=== PATIENT | female | born 1985 | race Caucasian/White ===

== ENCOUNTER 2022-06-27 11:32 | Emergency (ER) | payer BC, SELFPAY ==
[2022-06-27] VITALS (8 sets, daily range): BP systolic 144–187; BP diastolic 98–134; PULSE 62–77; RESP 18; TEMP 36.3; O2SAT 97–100; BMI 32.8
--- NOTE | 2022-06-27 11:51 | CRLHL7_ITS ---
For Patients: As a result of the Century Cures Act, medical imaging exams and procedure reports are released immediately into your electronic medical record. You may view this report before your referring provider. If you have questions, please contact your health care provider. INDICATION : Left-sided pain. History of urolithiasis. COMPARISON : None. TECHNIQUE : Noncontrast CT scan of the abdomen and pelvis was performed. FINDINGS: Lower chest: There are pleural-based nodules measuring 3.5 millimeters and 4.5 millimeters within the anterior right middle lobe (images 2 and 7, series 2). The lung bases are otherwise clear. Liver: Diffuse hepatic steatosis. No hepatic mass or ductal dilatation. Gallbladder and bile ducts: No stones or inflammation. No biliary dilatation. Pancreas: Unremarkable. No mass or inflammation. Spleen: Normal in size. No masses. Adrenal glands: Mild thickening of the left adrenal gland consistent with hyperplasia. Normal right adrenal gland. Kidneys: Nonobstructing stones measuring 2 millimeters and 3 millimeters within the right kidney upper pole. No focal right renal lesion. No right ureteral stone or hydronephrosis. There are 4 stones measuring between 2 and 4 millimeters within the left kidney lower pole. No focal left renal lesion is identified. There is an 8 millimeter stone within the left distal ureter resulting in moderate left hydroureteronephrosis (axial image 108, sagittal image 61 and coronal image 76). GI tract: The stomach and small bowel are unremarkable. There are numerous diverticuli within the descending and sigmoid colon. No diverticulitis. Normal appendix. Vasculature: Abdominal aorta is normal in caliber. Lymph nodes: No lymphadenopathy. Peritoneum/Abdominal Wall: Unremarkable. No sign of mass or infiltration. No free air or significant free fluid. Pelvis: Unremarkable. No pelvic masses. Normal urinary bladder. Bones: A densely sclerotic lesion within the left iliac crest (image 90, series 2) is consistent with a benign all there are mild degenerative changes within the right sacroiliac joint. Bone island. IMPRESSION: 1. Right middle lobe pulmonary nodules measuring 3.5 millimeters and 4.5 millimeters. If the patient is at low risk for pulmonary malignancy then no routine imaging follow-up is needed. If the patient is at increased risk for pulmonary malignancy then a follow-up CT scan could be performed in 1 year as per Fleischner criteria guidelines. 2. Bilateral nephrolithiasis. 3. 8 millimeter stone within the left distal ureter resulting in moderate left hydroureteronephrosis. 4. Diffuse hepatic steatosis. 5. Left adrenal gland hyperplasia. 6. Colonic diverticulosis. Please note that all CT scans at this facility use dose modulation, iterative reconstruction, and/or weight-based dosing when appropriate to reduce radiation dose to as low as reasonably achievable. Dictated by Renzo Nam MD @ 06/27/2022 12:40:33 PM (Electronically Signed)
[2022-06-27 12:03] LABS: Basophils Absolute Auto 0.05 K/uL (0.00-0.30); Basophils Percent Auto 0.7 % (0.0-3.0); Carbon Dioxide* 19 mmol/L (20-32); Chloride* 108 mmol/L (96-114); Eosinophils Absolute Auto 0.12 K/uL (0.00-0.50); Eosinophils Percent Auto 1.6 % (0.0-7.0); Glucose* 101 mg/dL (60-115); Hematocrit 39.9 % (33.0-51.0); Hemoglobin* 13.3 gm/dL (12.0-16.0); Immature Granulocytes Abs Auto 0.01 K/uL (0.00-0.30); Immature Granulocytes Pct Auto 0.1 %; Lymphocytes Absolute Auto 2.08 K/uL (0.90-2.90); Lymphocytes Percent Auto 28.4 % (20-44); Mean Corpuscular HGB Conc 33 gm/dL (32-36); Mean Corpuscular Hemoglobin 29 pg (26-34); Mean Corpuscular Volume 87 fL (80-100); Monocytes Percent Auto 7.4 % (0.0-11.0); Neutrophils Absolute Auto 4.52 K/uL (1.7-7.0); Neutrophils Percent Auto 61.8 % (42.0-72.0); Platelet Count* 333 K/uL (140-440); RDW Coefficient of Variation % 12.8 % (11.5-15.5); Sodium* 142 mmol/L (135-149); White Blood Count* 7.32 K/uL (4.50-11.00)
[2022-06-27 12:07] LABS: Slide Review Reflex No
[2022-06-27 12:17] LABS: Creatinine* 0.9 mg/dL (0.5-1.5); Est. Creatinine Clearance* 69.42; Estimated Glomerular Filt Rate 83 ml/min
[2022-06-27 12:18] LABS: Blood Urea Nitrogen* 11 mg/dL (5-24)
[2022-06-27] MEDS: ONDANSETRON 2 MG/ML inj 4 MG IVP (12:22)
[2022-06-27] MEDS: KETOROLAC 30 MG/ML inj IVP (12:23)
[2022-06-27] MEDS: 0.9 % SODIUM CHLORIDE 1000 ml 1,000 ML IV (12:24)
--- NOTE | 2022-06-27 12:35 | ED.ABDPAIN ---
HPI - Abdominal Pain General Date Seen: 06/27/22 Chief Complaint: Flank Pain Stated Complaint: Kidney stone Time Seen by Provider: 06/27/22 11:37 Source: patient Mode of arrival: ambulatory Limitations: no limitations History of Present Illness HPI narrative: Patient is a 37-year-old female presents here with left flank discomfort there radiates around to her left groin, this is characteristic of previous kidney stones that she has had, she has a known former of kidney stones. It has been for the last 2 years that she has not passed any stones but this feels like his she took ibuprofen this morning that helped. She feels slightly nauseous, but has had no vomiting. She denies any fevers chills, there is no dysuria frequency, she her has been able to passed stones up to 7 mm, but has required lithotripsy and stenting in the past. All over treatments for down in [facility], she has recently moved up to the area in the last year and a half and has no urologist locally. Tells me that she is not as her had a vasectomy. No chronic medications, no known allergies. Denies significant fevers chills or sweats diarrhea dysuria frequency of urination sore throat chest pain or other symptoms. Treatments prior to arrival: NSAIDs Related Data Patient : No Home Medications Medication Instructions Recorded Confirmed No Known Home Medications 06/27/22 06/27/22 Allergies Allergy/AdvReac Type Severity Reaction Status Date / Time No Known Drug Allergies Allergy Verified 06/27/22 11:45 Review of Systems Status of ROS Reports: 10 or more systems reviewed and unremarkable except as noted in History and below PFSH PFSH Social History Smoking Status: Former smoker Do you use any of these nicotine containing products: Vaping Products Second hand tobacco smoke exposure: No How often do you have a drink containing alcohol: never How often do you have six or more drinks on one occasion: Never AUDIT-C Alcohol total score: 0 Non-prescribed substance use: denies use Exam Narrative: Exam Narrative: Patient is the no apparent distress sitting in room 3, she is alert oriented, nontoxic. Pupils equal round reactive to light neck is supple oropharynx normal, good hydration status, chest is clear bilaterally no wheezing crackles noted, heart sounds are normal, abdomen is soft, some mild tenderness is noted the left lower quadrant on deep palpation, no positive CVA tenderness is noted, she moves all extremities independently well with negative SLR is bilaterally. Skin reveals no petechiae rashes Const: Vital Signs, click to edit/add: Vital Signs - 24 hr 06/27/22 11:40 06/27/22 12:27 06/27/22 12:30 Temperature 97.4 F L Pulse Rate 67 65 Pulse Rate [Right Pulse Oximeter] 77 Respiratory Rate 18 Blood Pressure Blood Pressure [Ri ght Upper Arm] 187/134 H Pulse Oximetry 99 99 97 Oxygen Delivery Me thod Room Air 06/27/22 12:33 06/27/22 13:00 06/27/22 13:02 Temperature Pulse Rate 62 65 65 Pulse Rate [Right Pulse Oximeter] Respiratory Rate Blood Pressure 148/100 H 145/98 H Blood Pressure [Ri ght Upper Arm] Pulse Oximetry 97 98 100 Oxygen Delivery Me thod 06/27/22 13:30 06/27/22 13:32 Temperature Pulse Rate 76 Pulse Rate [Right Pulse Oximeter] Respiratory Rate Blood Pressure 144/117 H Blood Pressure [Ri ght Upper Arm] Pulse Oximetry 98 Oxygen Delivery Me thod Documenting provider has reviewed patient's vital signs: yes Course Course Hospital Course: Patient has done well here, she has no complaints, the Toradol and Zofran of really worked well for her. She has a rather large stone but has had a history of passing large stones. I think it would be reasonable to try this outpatient, she is advocating for this. We will allow her to use the Zofran ibuprofen and some hydrocodone for breakthrough pain I went over signs and symptoms of worsening condition, and she was very comfortable with going home. We also did briefly touch on the fact that she has pulmonary nodules, she will need to follow-up within primary care for recheck, and likely re imaging for this. Review of the [employer] did not show any prescriptions for narcotics. Vital Signs Vital signs: Initial Vital Signs Temperature 97.4 F L 06/27/22 11:40 Temperature Source Temporal Artery Scan 06/27/22 11:40 Pulse Rate 77 06/27/22 11:40 Respiratory Rate 18 06/27/22 11:40 Blood Pressure 187/134 H 06/27/22 11:40 Blood Pressure Mean 151 H 06/27/22 11:40 Blood Pressure Position Sitting 06/27/22 11:40 Pulse Oximetry 99 06/27/22 11:40 Oxygen Delivery Method Room Air 06/27/22 11:40 Vital Signs Temperature 97.4 F L 06/27/22 11:40 Pulse Rate 77 06/27/22 11:40 Respiratory Rate 18 06/27/22 11:40 Blood Pressure 187/134 H 06/27/22 11:40 Pulse Oximetry 99 06/27/22 11:40 Oxygen Delivery Method Room Air 06/27/22 11:40 Temperature 97.4 F L 06/27/22 11:40 Pulse Rate 76 06/27/22 13:30 Respiratory Rate 18 06/27/22 11:40 Blood Pressure 144/117 H 06/27/22 13:32 Pulse Oximetry 98 06/27/22 13:30 Oxygen Delivery Method Room Air 06/27/22 11:40 MDM - Abdominal Pain MDM Narrative Medical decision making narrative: During the evaluation of this patient I considered multiple differential diagnosis including life-threatening differentials which are appendicitis, aortic aneurysm, mesenteric ischemia, bowel perforation, ectopic , volvulus and bowel obstruction, other differential diagnosis include but are not limited to inflammatory bowel disease, cholecystitis, pancreatitis, hepatitis, gastritis, GERD, diverticulitis, peptic ulcer disease, pyelonephritis/UTI, renal colic/stone, pelvic inflammatory disease, cervicitis, endometritis, intrauterine , dysfunctional uterine bleeding, ovarian cyst/torsion, spontaneous as well as other etiologies Medical Records Attestation: I reviewed the patient's medical records. Lab Data Attestation: I reviewed the patient's lab results. Labs: Lab Results 06/27/22 06/27/22 Range/Units 11:40 13:10 WBC 7.32 (4.50-11.00) K/uL RBC 4.60 (4.00-5.20) m/uL Hgb 13.3 (12.0-16.0) gm/dL Hct 39.9 (33.0-51.0) % MCV 87 (80-100) fL MCH 29 (26-34) pg MCHC 33 (32-36) gm/dL RDW Coeff of Isauro 12.8 (11.5-15.5) % Plt Count 333 (140-440) K/uL Neut % (Auto) 61.8 (42.0-72.0) % Lymph % (Auto) 28.4 (20-44) % [place] % (Auto) 7.4 (0.0-11.0) % Eos % (Auto) 1.6 (0.0-7.0) % Baso % (Auto) 0.7 (0.0-3.0) % Neut # (Auto) 4.52 (1.7-7.0) K/uL Lymph # (Auto) 2.08 (0.90-2.90) K/uL [place] # (Auto) 0.50 (0.00-0.90) K/UL Eos # (Auto) 0.12 (0.00-0.50) K/uL Baso # (Auto) 0.05 (0.00-0.30) K/uL Sodium 142 (135-149) mmol/L Potassium 4.0 (3.6-5.1) mmol/L Chloride 108 (96-114) mmol/L Carbon Dioxide 19 L (20-32) mmol/L BUN 11 (5-24) mg/dL Creatinine 0.9 (0.5-1.5) mg/dL Estimated Creat Clear 69.42 Estimated GFR 83 ml/min Glucose 101 (60-115) mg/dL Urine Color Dark yellow (Yellow) Urine Appearance Cloudy A (Clear) Urine pH 5.5 (5.0-8.5) Ur Specific [place] >= 1.030 (1.000-1.030) Urine Protein 2+ A (Negative) Urine Glucose (UA) Negative (Negative) Urine Ketones Trace A (Negative) Urine Blood 3+ A (Negative) Urine Nitrite Negative (Negative) Urine Bilirubin Negative (Negative) Urine Urobilinogen 0.2 (0.2-1.0) Ur Leukocyte Esterase Negative (Negative) Urine RBC >100 A (0-2) Urine WBC 2-5 (0-5) Ur Squamous Epith Cells Moderate A (None-Few) Urine Bacteria None (None) Imaging Data CT scan - abdomen: My impression: Urolithiasis with moderately severe hydronephrosis seen on the left side, stone measures 4-5 mm, distal ureter Radiologist's impression: Patient: NICOLA ISLAS Facility:[facility] Patient ID:?[id number] Site Patient ID:?[id number]. Site :?[id number] Study:?CT Abdomen/Pelvis W/O-06/27/2022 12:13:14 PM Ordering Physician:Elsy Mcqueen Final Report: INDICATION : Left-sided pain. History of urolithiasis. COMPARISON : None. TECHNIQUE : Noncontrast CT scan of the abdomen and pelvis was performed. FINDINGS: Lower chest: There are pleural-based nodules measuring 3.5 millimeters and 4.5 millimeters within the anterior right middle lobe (images 2 and 7, series 2). The lung bases are otherwise clear. Liver: Diffuse hepatic steatosis. No hepatic mass or ductal dilatation. Gallbladder and bile ducts: No stones or inflammation. No biliary dilatation. Pancreas: Unremarkable. No mass or inflammation. Spleen: Normal in size. No masses. Adrenal glands: Mild thickening of the left adrenal gland consistent with hyperplasia. Normal right adrenal gland. Kidneys: Nonobstructing stones measuring 2 millimeters and 3 millimeters within the right kidney upper pole. No focal right renal lesion. No right ureteral stone or hydronephrosis. There are 4 stones measuring between 2 and 4 millimeters within the left kidney lower pole. No focal left renal lesion is identified. There is an 8 millimeter stone within the left distal ureter resulting in moderate left hydroureteronephrosis (axial image 108, sagittal image 61 and coronal image 76). GI tract: The stomach and small bowel are unremarkable. There are numerous diverticuli within the descending and sigmoid colon. No diverticulitis. Normal appendix. Vasculature: Abdominal aorta is normal in caliber. Lymph nodes: No lymphadenopathy. Peritoneum/Abdominal Wall: Unremarkable. No sign of mass or infiltration. No free air or significant free fluid. Pelvis: Unremarkable. No pelvic masses. Normal urinary bladder. Bones: A densely sclerotic lesion within the left iliac crest (image 90, series 2) is consistent with a benign all there are mild degenerative changes within the right sacroiliac joint. Bone island. IMPRESSION: 1. Right middle lobe pulmonary nodules measuring 3.5 millimeters and 4.5 millimeters. If the patient is at low risk for pulmonary malignancy then no routine imaging follow-up is needed. If the patient is at increased risk for pulmonary malignancy then a follow-up CT scan could be performed in 1 year as per Fleischner criteria guidelines. 2. Bilateral nephrolithiasis. 3. 8 millimeter stone within the left distal ureter resulting in moderate left hydroureteronephrosis. 4. Diffuse hepatic steatosis. 5. Left adrenal gland hyperplasia. 6. Colonic diverticulosis. Please note that all CT scans at this facility use dose modulation, iterative reconstruction, and/or weight-based dosing when appropriate to reduce radiation dose to as low as reasonably achievable. Dictated by Renzo Nam MD @ 06/27/2022 12:40:33 PM (Electronic Signature) Discharge Plan Discharge Clinical Impression: Pulmonary nodule, Urolithiasis, Renal colic on left side Patient Disposition: Home w/ Parent or Adult Condition: Improved Instructions: Renal Colic (ED), Pulmonary Nodules (ED), Lithotripsy (DC) Additional Instructions: Home rest ibuprofen as needed, small supply of stronger medications given, narcotics, no use of alcohol with them, Zofran for nausea vomiting, this is a very large stone I initially measured to 5 mm but the radiologist saying it 7-8. You all have however passed it almost the entire way through your ureter, with a good chance that this will pass on its own. Increasing pain, nausea vomiting, fevers chills, or other issue she should come back and be seen, continue with fluids. I have given you the name of a urologist, that you can follow-up with in the [facility]. Some pulmonary nodules were also noted on your CT scan. Recommend following up with your primary doctor in the next month to discuss. Activity Level: No Restrictions Prescriptions: No Action No Known Home Medications Follow Up/Referrals: Luis Hyde MD [Staff Physician] - Provider,Not a Local [Primary Care Provider] - Stand Alone Forms: [employer] Info Instructions
[2022-06-27 13:19] LABS: Appearance Urine Cloudy (Clear); Bilirubin Urine Negative (Negative); Blood Urine 3+ (Negative); Color Urine Dark yellow (Yellow); Glucose Urine Negative (Negative); Ketones Urine Trace (Negative); Leukocyte Esterase Urine Negative (Negative); Nitrite Urine Negative (Negative); Protein Urine 2+ (Negative); Specific Gravity Urine >= 1.030 (1.000-1.030); Urobilinogen Urine 0.2 (0.2-1.0); pH Urine 5.5 (5.0-8.5)
[2022-06-27 13:35] LABS: RBC Urine >100 (0-2); Squamous Epithelial Cell Urine Moderate (None-Few)
== END 2022-06-27 13:52 | disposition home or self-care (01) ==
PROVIDERS: Emergency Provider Family Medicine
DX: R91.1 Solitary pulmonary nodule (principal); N20.9 Urinary calculus, unspecified; N23 Unspecified renal colic
CPT/HCPCS: 36415; 74176; 80048; 81001; 85025; 96374; 96375; 99284; J1885; J2405; J7030

== ENCOUNTER 2024-01-09 10:00 | Day surgery (SDC) | payer BC, SELFPAY ==
[2024-01-09] VITALS (11 sets, daily range): BP systolic 87–143; BP diastolic 49–94; PULSE 64–75; RESP 12–16; TEMP 36.7–37; O2SAT 96–100; BMI 33.5
[2024-01-09 10:55] LABS: Ur HCG Qualitative* Negative (Negative)
[2024-01-09] MEDS: SODIUM CHLORIDE 0.9 % (FLUSH) 10 ML SYRINGE IVF (11:00)
--- NOTE | 2024-01-09 11:09 | W.ANESCHARGE ---
Anesthesia Charges Start Date/Time Anesthesia Start Date: 01/09/24 Anesthesia Start Time: 12:12 Stop Date/Time Anesthesia Stop Date: 01/09/24 Anesthesia Stop Time: 13:00
[2024-01-09] MEDS: 0.9 % SODIUM CHLORIDE 500 ML 500 ML 100 ML IV (11:30)
--- NOTE | 2024-01-09 12:17 | W.PM.H&PU ---
History & Physical Update History & Physical Update H&P Reviewed and patient assessed: No changes noted
--- NOTE | 2024-01-09 12:17 | PM.GSPRC ---
Operative Note Date of procedure: 01/09/24 Pre-op diagnosis: 1. 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 Post-op diagnosis: 1. Chronic anal fissure. 2. Friable enlarged internal and external hemorrhoid. Type of Procedure: 1. Lateral internal sphincterotomy. 2. 1 quadrant hemorrhoidectomy. Indications: 38-year-old female was seen in clinic for evaluation of perianal pain. She thought she had inflamed hemorrhoids. She has issues with constipation and complained of pain after bowel movements. The pain was dull for several days after the bowel movement. She had these episodes on and off and occasionally had bright red blood per rectum as well. On clinical exam patient was noted to have a small skin tag anterior midline and presence of acute anal fissure with rolled edges of the fissure. There is no bleeding during the exam. Patient was too uncomfortable with anoscopy due to her fissure. Conservative treatment of anal fissure was recommended. Patient was compliant with conservative treatment but continued to have symptoms. Patient called clinic looking for surgical treatment of her anal fissure. The procedure was discussed in detail. The risks associated procedure including infection, bleeding, temporary and permanent gas and stool incontinence and nonresolution of symptoms were all discussed with the patient, and she agreed to proceed. Procedure Description: After discussing the risks and benefits of the procedure, the patient signed informed consent.? The operative site was marked and the patient was brought to the operating room. Spinal anesthesia was administered by anesthesia staff, and patient was placed prone on the operating table with pressure points padded. The operative site was then prepped and draped in the usual sterile fashion.? A time-out was then performed. Since patient's anoscopy was not able to be completed in clinic, we first proceeded with exam under anesthesia. Moderately redundant external hemorrhoidal skin tag was noted anterior midline. This was in continuation with enlarged internal hemorrhoid which was protruding through the anus spontaneously. The anoderm overlying the internal hemorrhoid was friable and bled with minimal trauma. The rest of the internal hemorrhoidal tissue was only minimally enlarged (right and left laterally). Posterior midline a chronic fissure was identified with rolled anoderm edges. I first proceeded with lateral internal sphincterotomy. The external and internal sphincter fibers were palpated. With anoscope in place anal mucosa was incised in the anal canal with cautery over the internal sphincter left laterally. The internal sphincter fibers were then isolated with a Amina clamp and divided with cautery. The internal sphincter fibers were divided the length of the anal fissure. Anal sphincter release was palpable after this division of sphincter fibers. Hemostasis achieved with cautery. The anal mucosa was then closed with a running Vicryl suture. I then proceeded with 1 quadrant hemorrhoidectomy anterior midline. An elliptical incision was made with a needle tip electrocautery from the anoderm up into the anal canal just above the dentate line. Careful dissection of the hemorrhoid complex was done in the plane between the internal anal sphincter and the submucosal vascular plexus up to just above the dentate line. Having established the proper plane, the hemorrhoidal tissue was then excised with the Ligasure device and sent to Pathology for analysis. Care was taken to preserve mucosa for a tension-free closure. The incision was closed in a running locked manner starting at the apex (proximal aspect of elliptical excision) with 3-0 chromic suture, coming out to the anoderm and then running back up in a simple fashion and tying down at the apex. Hemostasis was excellent. A mixture of Marcaine and Exparel was then injected for bilateral pudendal nerve block. Sterile dressings were then applied outside of the anus. All counts were correct at the end of the case. ? The patient was then woken and transported to the recovery area in stable condition. ? The patient tolerated the procedure well. 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 Redundant friable internal and external hemorrhoid in 1 quadrant was identified and excised. Anesthesia: local and spinal Surgeon: Tamiko Romero MD Estimated blood loss (mL): 5 Additional Specimen Information: 1. Hemorrhoid. Condition: stable Disposition: PACU
[2024-01-09] MEDS: BUPIVACAINE 0.25 %/EPI 1:200K 30 ml 10 ML INJECTION (12:49)
[2024-01-09] MEDS: BUPIVACAINE LIPOSOME 133 MG/10 ML INJ INFILTRATI (12:49)
--- NOTE | 2024-01-09 13:03 | W.ANESCHARGE ---
Anesthesia Charges Start Date/Time Anesthesia Start Date: 01/09/24 Anesthesia Start Time: 12:12 Stop Date/Time Anesthesia Stop Date: 01/09/24 Anesthesia Stop Time: 13:00
[2024-01-09] MEDS: fentaNYL 100 MCG/2 ML inj 50 MCG IVP ×2 (13:40→13:50)
[2024-01-09] MEDS: hydrOXYzine pamoate 25 MG CAPSULE PO (13:40)
[2024-01-09] MEDS: HYDROCODONE-ACETAMIN 5-325 MG 1 TAB PO (13:50)
[2024-01-09] MEDS: HYDROmorphone 0.5 mg/0.5 ml inj IVP (14:00)
[2024-01-09] MEDS: KETOROLAC 30 MG/ML inj IVP (14:20)
== END 2024-01-09 15:47 | disposition home or self-care (01) ==
PROVIDERS: PCP Family Medicine; Visit Provider Surgery
PROC: (CPT 46080; principal; 2024-01-09 11:30)
DX: K60.0 Acute anal fissure (principal); K60.1 Chronic anal fissure; K64.8 Other hemorrhoids; K64.4 Residual hemorrhoidal skin tags
CPT/HCPCS: 46080; 46255; 00902; 81025; 88304; A9270; C9290; J1171; J1885; J2250; J2405; J2704; J3010; J7030